=== PATIENT | female | born 1975 | race Hispanic/Latino ===

== ENCOUNTER 2017-05-31 10:12 | Observation (INO) | payer OTHER ==
[~2017-05-31] VITALS: Ht 170.2 cm; Wt 91.8 kg
[~2017-05-31 10:12] MED LIST: LEVOTHYROXIN50 MCG PO; LISINOPRIL10 MG PO; LOVASTATIN10 M1 PO; LOVASTATIN10 MG PO; METFORMIN500 MG PO; ZESTRIL10 M1 PO
--- NOTE | 2017-05-31 10:27 | NUR ---
PT ARRIVES TO ROOM AMBULATORY, COMPLAINS OF CHEST PRESSURE, NO ACUTE DISTRESS. EKG DONE.
--- NOTE | 2017-05-31 10:35 | NUR ---
IV INITATED AND LABS COLLECTED. PATIENT ALSO REPORTING THROUGH HEAVY FORGER HELPER THAT THE HAS BEEN HAVING RIGHT SIDED NUMBNESS X 1 DAY. NIH COMLETED AND IS A ZERO AT THIS TIME. PATIENT REPORTS CHEST PAIN IS MID STERANL AND NON RADIATING. PAIN NOW 7/10. PATIENT AWARE OF PLAN OF CARE AND WAIT TIME. WILL CONTINUE TO MONITOR.
[2017-05-31 10:57] LABS: HEMATOCRIT 41.5 % (37.0-47.0); HEMOGLOBIN 13.5 g/dl (12.0-16.0); IMMATURE GRANULOCYTES 0.3 % (0.0-1.0); MEAN CELL VOLUME 91.4 fL CALC (80.0-100.0); MEAN CORPUSCULAR HGB 29.7 pG CALC (26.0-32.0); MEAN CORPUSCULAR HGB CONC 32.5 g/L CALC (32.0-36.0); NEUT# 3.93 thou/uL (2.00-7.15); RED BLOOD COUNT 4.54 mill/uL (4.20-5.60); RED CELL DISTRI WIDTH 12.3 % (11.5-15.5)
--- NOTE | 2017-05-31 11:09 | NUR ---
PATIENT REPORTS PAIN IS 2/10 AT THIS TIME. PATIENT STATES "I ALMOST FORGOT ABOUT THE PAIN". PATIENT LAUGHING AND TALKING WITH SISTER. VSS. PATIENT SHOWING SINUS RHYTHM ON THE MONITOR AT 74. CALL [place] WITHIN REACH, WILL CONTINUE TO MONITOR.
[2017-05-31 11:12] LABS: ALBUMIN 4.8 g/dL (3.2-5.0); ALKALINE PHOSPHATASE 104 u/l (38-126); ANION GAP 15 (6-22 (CALC)); BILIRUBIN, TOTAL 0.5 mg/dL (0.0-1.4); BUN 12 mg/dL (7-17); BUN/CREATININE RATIO 20 (12-20 (CALC)); CALCIUM 9.3 mg/dL (8.4-10.2); CARBON DIOXIDE 24 mmol/l (22-30); CHLORIDE 105 mmol/l (95-108); CREATININE 0.6 mg/dL (0.5-1.0); GFR > 60 ML/MIN (>=60 (CALC)); GFR FOR AFR.AMER. > 60 ML/MIN (>=60 (CALC)); GLUCOSE 109 mg/dL (65-105); POTASSIUM 4.1 mmol/l (3.5-5.1); SGOT/AST 31 u/l (14-36); SGPT/ALT 36 u/l (9-52); SODIUM 140 mmol/l (137-146); TOTAL PROTEIN 8.1 g/dL (6.3-8.2)
[2017-05-31 11:24] LABS: MYOGLOBIN 19 ng/mL (0 - 62)
--- NOTE | 2017-05-31 12:00 | NUR ---
MONITORED PATIENT SINUS ON THE MONITOR AT 72. PATIENT DENIES ANY PAIN OR NUMBNESS AT THIS TIME. PATIENT AWARE OF PENDING CT RESULTS AND WAIT TIME. CALL [place] WITHIN REACH, WILL CONTINUE TO MONITOR.
--- NOTE | 2017-05-31 12:47 | NUR ---
MD AT BEDSIDE TO DISCUSS RESULTS AND PLAN OF CARE.
--- NOTE | 2017-05-31 13:02 | NUR ---
SBAR PRINTED TO FLOOR
--- NOTE | 2017-05-31 13:21 | NUR ---
UNABLE TO GIVE NURSE TO NURSE REPORT AT THIS TIME, NURSE WILL CALL BACK.
--- NOTE | 2017-05-31 13:37 | NUR ---
REPORT GIVEN TO ESTEE TURPIN.
--- NOTE | 2017-05-31 13:40 | NUR ---
Admission Note Report Given to: ESTEE TURPIN Transported by: X Wheelchair Stretcher Transported with: X Nurse Transporter X Patent IV O2 X Hospital Staff Pharmacist
--- NOTE | 2017-05-31 13:43 | NUR ---
PT ARRIVED TO FLOOR VIA STRETCHER ACCOMPANIED BY ESTEE KURTZ. PT AMBULATES INDEPENDENTLY. STEADY GAIT. NO SOB. DENIES CP. REPORTS REASON FOR VISIT TO ED FOR CP AND LEFT ARM "NOT FEELING NORMAL". REPORST RESOLUTION OF THESE SYMPTOMS. REPORTING OF CONCERNS AND QUESTIONS ENCOURAGED. PLAN OF CARE DISCUSSED. PT ORIENTED TO ROOM AND EQUIPMENT. CALL LIGHT REVIEWED AND IN REACH. PT STATES UNDERSTANDING.
--- NOTE | 2017-05-31 13:45 | NUR ---
Admission Note Report Given to: ESTEE TURPIN Transported by: X Wheelchair Stretcher Transported with: X Nurse Transporter X Patent IV O2 X Metal Molder
[2017-05-31 14:14] VITALS: BP 149/63
[2017-05-31 16:35] LABS: CHOLESTEROL HDL RATIO 4.7 (<4.4 (CALC)); MAGNESIUM 2.1 mg/dL (1.6-2.3)
--- NOTE | 2017-05-31 16:59 | NUR ---
PT REPORTS SEVERE HEADACHE. NITRO PATCH REMOVED FROM CHEST. TYLENOL PO ADMINISTERED. WILL MONITOR FOR EFFECTIVENESS.
[2017-05-31 18:38] VITALS: BP 160/90
--- NOTE | 2017-05-31 20:00 | NUR ---
PT RESTING IN BED WITH EYES CLOSED, RESPIRATIONS EVEN AND UNLABORED ON RA, DENIES CHEST PAIN. TELE IN PLACE READING SR 76. ENCOURAGED TO USE CALL LIGHT FOR ASSISTANCE, WILL CONTINUE TO MONITOR.
--- NOTE | 2017-06-01 | NUR ---
IN BED WATHCHING TV, DENIES CHEST PAIN. CALL LIGHT IN REACH.
[2017-06-01 00:11] VITALS: BP 140/79
--- NOTE | 2017-06-01 04:00 | NUR ---
RESTING WITH EYES CLOSED, RESPIRATIONS EVEN AND UNLABORED. CALL LIGHTIN REACH, AT BED SIDE.
[2017-06-01 04:07] VITALS: BP 131/77
[2017-06-01 06:29] LABS: CHOLESTEROL HDL RATIO 4.3 (<4.4 (CALC))
--- NOTE | 2017-06-01 07:00 | NUR ---
RECEIVED BEDSIDE REPORT FROM DESTINI MAY. SITTING ON EDGE OF BED TALKING ON TELEPHONE. RESPS EVEN AND UNLABORED ON ROOM AIR, TELE MONITOR IN PLACE. DENIES PAIN OR DISCOMFORT. PLAN OF CARE DISCUSSED. SAFETY PRECAUTIONS REINFORCED. BED IN LOWEST POSITION WITH WHEELS LOCKED. CALL LIGHT WITHIN REACH. ENCOURAGED PT TO CALL FOR ANY NEEDS.
[2017-06-01 07:58] VITALS: BP 141/53
[2017-06-01] MEDS ORDERED: ASPIRIN CHEWABL81 MG PO (11:19)
--- NOTE | 2017-06-01 11:40 | NUR ---
DR DE PAZ IN WITH PT, NEW ORDERS RECEIVED.
[2017-06-01 11:45] VITALS: BP 145/91
--- NOTE | 2017-06-01 12:49 | NUR ---
Discharge instructions given. Patient verbalizes understanding of same. Discharged in stable condition via Ambulatory to Home with friend. All belongings sent with pt.
== END 2017-06-01 12:46 | disposition home or self-care (01) | DRG 313 ==
LOC: ED 10:12 → ED-I 12:44 → ED 12:56 → MS2 12:57
PROVIDERS: Emergency Medicine; Nurse Practitioner Family; ADMIT Internal Medicine; ATTEND Internal Medicine
PROC: 3E0234Z Introduction of Serum, Toxoid and Vaccine into Muscle, Percutaneous Approach (ICD-10-PCS; principal; 2017-06-01)
DX: R07.89 Other chest pain (principal); E11.69 Type 2 diabetes mellitus with other specified complication; E03.9 Hypothyroidism, unspecified; E78.5 Hyperlipidemia, unspecified; I10 Essential (primary) hypertension; Z23 Encounter for immunization
CPT/HCPCS: G0378

== ENCOUNTER 2017-07-12 07:29 | Emergency (ER) | payer OTHER ==
[~2017-07-12] VITALS: Ht 170.2 cm; Wt 100.0 kg
[~2017-07-12 07:29] MED LIST changes: +ASPIRIN CHEWABL81 MG PO
[2017-07-12] MEDS ORDERED: BENADRYL25 M1 PO (07:45)
[2017-07-12] MEDS ORDERED: PREDNISONE50 MG PO (07:45)
[2017-07-12 07:56] VITALS: BP 125/78
== END 2017-07-12 08:00 | disposition home or self-care (01) | DRG 916 ==
LOC: ED 07:29
DX: T78.40XA Allergy, unspecified, initial encounter (principal); L29.9 Pruritus, unspecified

== ENCOUNTER 2019-02-11 23:26 | Emergency (ER) | payer OTHER ==
[~2019-02-11] VITALS: Ht 170.2 cm; Wt 90.0 kg
[~2019-02-11 23:26] MED LIST changes: +BENADRYL25 M1 PO; +PREDNISONE50 MG PO
[2019-02-12 00:20] LABS: URINE BILIRUBIN - DIPSTICK NEGATIVE (NEGATIVE); URINE BLOOD DIPSTICK SMALL (NEGATIVE); URINE COLOR YELLOW; URINE GLUCOSE - DIPSTICK NEGATIVE (NEGATIVE); URINE KETONE NEGATIVE (NEGATIVE); URINE LEUK ESTERASE NEGATIVE (NEGATIVE); URINE NITRITE - DIPSTICK NEGATIVE (Negative); URINE PROTEIN - DIPSTICK NEGATIVE (NEG-TRACE); URINE UROBILINOGEN - DIPSTICK 0.2 E.U./dL (0.2)
[2019-02-12 00:34] LABS: HEMOGLOBIN 12.5 g/dl (12.0-16.0); IMMATURE GRANULOCYTES 1.5 % (0.0-5.0); MEAN CELL VOLUME 91.8 fL CALC (80.0-100.0); MEAN CORPUSCULAR HGB 29.4 pG CALC (26.0-32.0); MEAN CORPUSCULAR HGB CONC 32.1 g/L CALC (32.0-36.0); NEUT# 6.22 thou/uL (2.00-7.15); RED BLOOD COUNT 4.25 mill/uL (4.20-5.60); RED CELL DISTRI WIDTH 12.9 % (11.5-15.5)
[2019-02-12 00:44] LABS: ALBUMIN 4.6 g/dL (3.2-5.0); ALKALINE PHOSPHATASE 118 u/l (38-126); ANION GAP 11 (6-22 (CALC)); BILIRUBIN, TOTAL 0.4 mg/dL (0.0-1.4); BUN 14 mg/dL (7-17); BUN/CREATININE RATIO 22 (12-20 (CALC)); CARBON DIOXIDE 31 mmol/l (22-30); CHLORIDE 103 mmol/l (95-108); CREATININE 0.6 mg/dL (0.5-1.0); GFR > 60 ML/MIN (>=60 (CALC)); GFR FOR AFR.AMER. > 60 ML/MIN (>=60 (CALC)); POTASSIUM 4.6 mmol/l (3.5-5.1); SGOT/AST 18 u/l (14-36); SODIUM 140 mmol/l (137-146); TOTAL PROTEIN 7.7 g/dL (6.3-8.2)
[2019-02-12] MEDS ORDERED: ONDANSETRON4 MG PO (00:49)
[2019-02-12] MEDS ORDERED: FIORICET PO (00:49)
[2019-02-12 00:52] LABS: URINE BACTERIA FEW hpf; URINE SQUAMOUS EPITHELIAL CELL FEW EPI/hpf (0-FEW)
[2019-02-12 01:05] VITALS: BP 128/77
== END 2019-02-12 01:17 | disposition home or self-care (01) ==
LOC: ED 23:26
PROVIDERS: Emergency Medicine
DX: G43.909 Migraine, unspecified, not intractable, without status migrainosus (principal); R11.2 Nausea with vomiting, unspecified; H53.8 Other visual disturbances; I10 Essential (primary) hypertension; H53.149 Visual discomfort, unspecified; B96.20 Unspecified Escherichia coli [E. coli] as the cause of diseases classified elsewhere

== ENCOUNTER 2020-04-01 19:54 | Emergency (ER) | payer OTHER ==
[~2020-04-01] VITALS: Ht 167.6 cm; Wt 95.4 kg
[~2020-04-01 19:54] MED LIST changes: +FIORICET PO; +ONDANSETRON4 MG PO
[2020-04-01 21:15] LABS: IMMATURE GRANULOCYTES 0.3 % (0.0-5.0); MEAN CELL VOLUME 89.7 fL CALC (80.0-100.0); MEAN CORPUSCULAR HGB 29.1 pG CALC (26.0-32.0); MEAN CORPUSCULAR HGB CONC 32.5 g/dL CAL (32.0-36.0); NEUT# 3.9 thou/uL (2.00-7.15); RED BLOOD COUNT 4.46 mill/uL (4.20-5.60); RED CELL DISTRI WIDTH 11.9 % (11.5-15.5)
[2020-04-01 21:27] LABS: ALBUMIN 4.4 g/dL (3.2-5.0); ALKALINE PHOSPHATASE 119 u/l (38-126); ANION GAP 13 (6-22 (CALC)); BUN 15 mg/dL (7-17); BUN/CREATININE RATIO 24 (12-20 (CALC)); CARBON DIOXIDE 27 mmol/l (22-30); CHLORIDE 97 mmol/l (95-108); CREATININE 0.6 mg/dL (0.5-1.0); GFR > 60 ML/MIN (>=60 (CALC)); GFR FOR AFR.AMER. > 60 ML/MIN (>=60 (CALC)); POTASSIUM 4.2 mmol/l (3.5-5.1); SODIUM 134 mmol/l (137-146); TOTAL PROTEIN 7.3 g/dL (6.3-8.2)
[2020-04-01 21:39] LABS: BILIRUBIN, TOTAL 0.2 mg/dL (0.0-1.4); SGOT/AST 51 u/l (14-36)
[2020-04-01 22:29] LABS: URINE BILIRUBIN - DIPSTICK NEGATIVE (NEGATIVE); URINE BLOOD DIPSTICK NEGATIVE (NEGATIVE); URINE COLOR YELLOW; URINE GLUCOSE - DIPSTICK >=1000 mg/dL (NEGATIVE); URINE KETONE NEGATIVE (NEGATIVE); URINE LEUK ESTERASE NEGATIVE (NEGATIVE); URINE NITRITE - DIPSTICK NEGATIVE (Negative); URINE PH 5.5 (4.5-8.0); URINE PROTEIN - DIPSTICK NEGATIVE (NEG-TRACE); URINE UROBILINOGEN - DIPSTICK 0.2 E.U./dL (0.2)
[2020-04-01 23:20] VITALS: BP 114/57
[2020-04-01] MEDS ORDERED: GABAPENTIN100 MG PO (23:22)
[2020-04-01] MEDS ORDERED: ATORVASTATIN CA10 MG PO (23:23)
== END 2020-04-01 23:20 | disposition home or self-care (01) ==
LOC: ED 19:54
PROVIDERS: Emergency Medicine
DX: E11.65 Type 2 diabetes mellitus with hyperglycemia (principal); I10 Essential (primary) hypertension; E03.9 Hypothyroidism, unspecified; Z79.84 Long term (current) use of oral hypoglycemic drugs; Z91.11 Patient's noncompliance with dietary regimen

== ENCOUNTER 2020-12-28 17:26 | Emergency (ER) | payer OTHER ==
[~2020-12-28] VITALS: Ht 167.6 cm; Wt 99.0 kg
[~2020-12-28 17:26] MED LIST changes: +ATORVASTATIN CA10 MG PO; +GABAPENTIN100 MG PO
[2020-12-28] MEDS ORDERED: METFORMIN500 M2 PO (17:56)
[2020-12-28] MEDS ORDERED: BACTROBAN TOP (19:08)
[2020-12-28 19:14] VITALS: BP 140/74
== END 2020-12-28 19:30 | disposition home or self-care (01) ==
LOC: ED 17:26
DX: S51.832A Puncture wound without foreign body of left forearm, initial encounter (principal); I10 Essential (primary) hypertension; E11.9 Type 2 diabetes mellitus without complications; E03.9 Hypothyroidism, unspecified; W26.0XXA Contact with knife, initial encounter; Z79.84 Long term (current) use of oral hypoglycemic drugs